=== PATIENT | female | born 1995 | race African-American/Black ===

== ENCOUNTER 2020-07-05 04:22 | Inpatient (IN) | payer OTHER ==
[~2020-07-05] VITALS: Ht 165.1 cm; Wt 83.5 kg
[2020-07-05 05:21] LABS: EOS % 0.5 % (0-4.0); GRAN # 1.4 (1.4-6.5); GRAN % 35.4 % (42.2-75.2); HEMATOCRIT 45.4 % (37.0-47.0); HEMOGLOBIN 14.4 g/dl (12.5-16.0); LYMPH # 1.9 (1.2-3.4); MEAN CELL VOLUME 79 fl (80.0-100.0); MEAN CORPUSCULAR HEMOGLOBIN 25 pg (27.0-31.0); MEAN CORPUSCULAR HGB CONC 32 g/dl (33.0-37.0); MEAN PLATELET VOLUME 11.2 fl (7.4-10.4); MONO # 0.6 (0.1-0.6); MONO % 15.6 % (1.7-9.3); PLATELET COUNT 234 K/mm3 (130-400); RED BLOOD COUNT 5.78 M/mm3 (4.10-5.30); REDCELL DISTRIBUTION WIDTH-CV 15.2 % (11.5-14.5)
[2020-07-05 05:36] LABS: ALANINE AMINOTRANSFERASE 37 U/L (4-34); ALBUMIN 4.4 gm/dL (3.5-5.0); ALKALINE PHOSPHATASE 84 U/L (50-136); ANION GAP 10 mmol/L (7-16); AST,SGOT 89 U/L (15-37); BILIRUBIN,TOTAL 0.6 mg/dL (0.0-1.0); BLOOD UREA NITROGEN 9 mg/dL (7-17); CARBON DIOXIDE 27 mmol/L (22-30); CHLORIDE 103 mmol/L (98-107); GLUCOSE 106 mg/dL (74-106); LIPASE 52 U/L (23-300); SODIUM 140 mmol/L (137-145); TOTAL PROTEIN 8.2 gm/dL (6.4-8.2)
[2020-07-05 05:38] LABS: C-REACTIVE PROTEIN < 0.5 mg/dL (0.0-0.9); POTASSIUM 2.9 mmol/L (3.4-5.0)
[2020-07-05] MEDS ORDERED: ZOFRAN ODT8 MG PO (09:59)
[2020-07-05] MEDS ORDERED: PHENERGAN 25 TA25 MG PO (09:59)
[2020-07-05 11:27] VITALS: BP 141/85; PULSE 76; PULSE 89; TEMP 99.3
[2020-07-05 15:46] VITALS: BP 112/88; PULSE 69; TEMP 99.5
[2020-07-05 16:02] LABS: COLLECTION METHOD CLEAN CATCH
[2020-07-05 16:09] LABS: MUCOUS Present /lpf; PH 6 (5-8); URINE APPEARANCE Clear; URINE BACTERIA None Seen /hpf; URINE BILIRUBIN Negative (NEGATIVE); URINE BLOOD Negative (NEGATIVE); URINE COLOR Yellow; URINE GLUCOSE Negative (NEGATIVE); URINE KETONE 1+ (NEGATIVE); URINE LEUKOCYTE ESTERASE Negative (NEGATIVE); URINE NITRATE Negative (NEGATIVE); URINE PROTEIN(semi-quant) Negative (NEGATIVE); URINE RBC 0-2 /hpf; URINE UROBILINOGEN Negative (NEGATIVE); URINE WBC 0-2 /hpf
--- NOTE | 2020-07-05 19:23 | NUR ---
Pt continues to report N/V, PRN Zofran administered twice. She reports no more diarrhea this afternoon. Reports she can "deal with the pain". POC discussed with patient. IVF infusing into LAC, patient asking if she has to keep IV in all night. Reasoning explained to patient. Continues on clear liquids. Report given to Chaya.
--- NOTE | 2020-07-05 19:30 | NUR ---
Received report from Krystyna. Seen patient awake lying in bed. With Iv on left AC infusing NS with 20meq KCL at 125ml/hr. Not in severe pain now. Maintained on clear liquids.
[2020-07-05 19:49] VITALS: BP 139/72; PULSE 77; TEMP 98.9
--- NOTE | 2020-07-05 22:05 | NUR ---
Patient complains of abdominal pain. Pain score of 8/10. Toradol IV given.
[2020-07-06] VITALS (8 sets, daily range): BP systolic 120–145; BP diastolic 63–82; PULSE 70–97; TEMP 98.3–102.3
--- NOTE | 2020-07-06 06:12 | NUR ---
Patient doesn't have any bowel movement the whole shift. She did complain of abdominal pain last night but was relieved with Toradol. Will endorse to day shift nurse.
[2020-07-06 07:34] LABS: BASO % 0.3 % (0.0-2.0); EOS % 0.8 % (0-4.0); GRAN # 1.5 (1.4-6.5); HEMATOCRIT 43.1 % (37.0-47.0); HEMOGLOBIN 13.5 g/dl (12.5-16.0); LYMPH # 1.6 (1.2-3.4); LYMPH % 43.6 % (20.0-51.0); MEAN CELL VOLUME 79 fl (80.0-100.0); MEAN CORPUSCULAR HEMOGLOBIN 25 pg (27.0-31.0); MEAN CORPUSCULAR HGB CONC 31 g/dl (33.0-37.0); MEAN PLATELET VOLUME 12.5 fl (7.4-10.4); MONO # 0.5 (0.1-0.6); PLATELET COUNT 155 K/mm3 (130-400); RED BLOOD COUNT 5.43 M/mm3 (4.10-5.30); REDCELL DISTRIBUTION WIDTH-CV 15.7 % (11.5-14.5)
[2020-07-06 07:45] LABS: ALBUMIN 3.9 gm/dL (3.5-5.0); BILIRUBIN,TOTAL 0.6 mg/dL (0.0-1.0); CALCIUM 8.7 mg/dL (8.4-10.2); CREATININE, serum 0.74 (0.52-1.25); MAGNESIUM 1.7 mg/dL (1.6-2.3); PHOSPHOROUS 2.6 mg/dL (2.5-4.5); TOTAL PROTEIN 7.3 gm/dL (6.4-8.2)
--- NOTE | 2020-07-06 08:14 | NUR ---
Assessment completed, alert/oriented, vital signs stable, denies pain or nausea this morning, reports only a small loose BM overnight, otherwise denies any issues this morning, when asked if she was feeling any better she replied " I dont really know ", abd is soft and BS +, denies N/V/pain at this time, heart RRR, lungs CTA, potassium was 4.0 this morning/ patient is refusing her scheduled PO dose of KCL at this time, she is resting quietly and denies needs at this time
--- NOTE | 2020-07-06 10:30 | NUR ---
Initial visit attempt; Design Engineering Specialist left card with information regarding the availability of spiritual care at our hospital.
--- NOTE | 2020-07-06 13:41 | NUR ---
IRWIN met with the patient to discuss discharge plan. The patient lives alone in [place]. She does not have any family around here and states that she used to be in the . She reports independence with ADLs and does not have any DME. The patient's primary care provider is Zaida Perez APRN at the [facility] and she also receives her medications through the [place]. She reports no difficulties obtaining her meds. The patient does not have advanced directives and she was not interested in completing a DPOA-HC at this time. She is not . She states that her mother, Sherrie Packer (ph#[phone]), is her next of kin. Her mother lives in [place]. The patient plans to return home upon discharge. No additional needs at this time.
--- NOTE | 2020-07-06 19:05 | NUR ---
Received report from Ke. Seen patient asleep in bed. Call light within reach.
--- NOTE | 2020-07-06 20:35 | NUR ---
Patient's temp at 1942H was 100.3F. Rechecked temp now and it's 102.3F. Informed Dr. Patricio and he ordered Tylenol and Blood culture.
--- NOTE | 2020-07-06 20:50 | NUR ---
Patient refuses the Tylenol for now since she feels like she's gonna vomit anytime soon. Informed her I can give the Zofran once it's due and we can try the Tylenol after.
[2020-07-07] VITALS (8 sets, daily range): BP systolic 118–135; BP diastolic 59–84; PULSE 57–88; TEMP 98.5–100.2
--- NOTE | 2020-07-07 06:33 | NUR ---
Patient's latest temp is 98.6F. No vomiting and bowel movement throughout the night. Will endorse to day shift.
[2020-07-07 07:57] LABS: ALBUMIN 3.8 gm/dL (3.5-5.0); BILIRUBIN,TOTAL 0.6 mg/dL (0.0-1.0); CALCIUM 8.7 mg/dL (8.4-10.2); CREATININE, serum 0.76 (0.52-1.25); POTASSIUM 4.1 mmol/L (3.4-5.0); TOTAL PROTEIN 7.1 gm/dL (6.4-8.2)
--- NOTE | 2020-07-07 13:30 | NUR ---
patients [facility] psychiatrist called me and notified me that the patient had a Zoom call appointment and voiced some suicidal thoughts, I have notified of this/ and I ahve spoke to the patient who reported she has no real suicidal intentions/ plans and that she only said that out of frustration of being sick and in the hospital, I explained to the patient that we take these matters seriously reguardless and has ordered a Psych consult and 15 minutes checks with close monitoring but does NOT require a 1:1 sitter, patient verbalized undestanding and we have moved her to room 355 where she can be visualized from the nursing desk at all times
--- NOTE | 2020-07-07 13:35 | NUR ---
Production Officer collaborated with RNKe and Regional Clinical Director about obtaining a screening from [facility] once medically stable. SW contacted the Crisis Stabilization Unit and faxed over initial information. Once medically cleared, Heath will screen patient. IRWIN will continue to follow.
--- NOTE | 2020-07-07 14:32 | NUR ---
REPORT FROM OFELIA YEPEZ.
--- NOTE | 2020-07-07 19:30 | NUR ---
Initial shift assessment done- states her IV site is bothering her, the tape is itching,, IV site still good, IV flushes well- will redress IV site and use gauze and papertape- pt agrees, IV fluids of NS at 75cc/hr. Has been resting well, denies nausea but states can not eat or drink or she will vomit, has had one small liquid type stool today -- inderstands we need a specimen for occult blood. On suicide precautions-
[2020-07-07 21:22] LABS: HIV 1/2 Antibodies Non-Reactive; HIV-1p24 Antigen Non-Reactive
[2020-07-08] VITALS (14 sets, daily range): BP systolic 122–135; BP diastolic 71–85; PULSE 62–83; TEMP 98.1–98.7
--- NOTE | 2020-07-08 05:55 | NUR ---
Quiet night-- VSS, pt quiet/calm all shift,, IV fluids remain at 75cc/hr, Zofran was given x1 during the night. Unable to use the SCD,s due to the suicide precautions-
--- NOTE | 2020-07-08 06:50 | NUR ---
PATIENT IS EASILY ARROUSED WHEN SHIFT REPORT WAS GIVEN. SHE DENIES OTHER NEEDS AT THIS TIME AND HAS BEEN ABLE TO TOLERATE WATER WITHOUT DIFFICULTY.
[2020-07-08 06:59] LABS: HEMATOCRIT 40.7 % (37.0-47.0); HEMOGLOBIN 12.9 g/dl (12.5-16.0); MEAN CELL VOLUME 79 fl (80.0-100.0); MEAN CORPUSCULAR HEMOGLOBIN 25 pg (27.0-31.0); MEAN CORPUSCULAR HGB CONC 32 g/dl (33.0-37.0); MEAN PLATELET VOLUME 11.1 fl (7.4-10.4); PLATELET COUNT 180 K/mm3 (130-400); RED BLOOD COUNT 5.15 M/mm3 (4.10-5.30); REDCELL DISTRIBUTION WIDTH-CV 15.6 % (11.5-14.5); RETIC # 0.03 M/mm3 (0.02-0.16); RETIC % 0.6 % (0.5-3.52)
[2020-07-08 07:11] LABS: ALBUMIN 3.6 gm/dL (3.5-5.0); BILIRUBIN,TOTAL 0.4 mg/dL (0.0-1.0); CALCIUM 8.5 mg/dL (8.4-10.2); CREATININE, serum 0.79 (0.52-1.25); MAGNESIUM 1.8 mg/dL (1.6-2.3); PHOSPHOROUS 3.2 mg/dL (2.5-4.5); POTASSIUM 3.7 mmol/L (3.4-5.0); TOTAL PROTEIN 6.8 gm/dL (6.4-8.2)
[2020-07-08 08:10] LABS: IRON,SERUM 49 ug/dL (35-150)
[2020-07-08 08:19] LABS: TOTAL IRON BINDING CAPACITY 282 ug/dL (265-497)
--- NOTE | 2020-07-08 08:30 | NUR ---
PATIENT ASSESSMENT COMPLETED. SHE DENIES PAIN OR NAUSEA AT THIS TIME. SHE WILL ATTEMPT TO EAT GRAPES THIS MORNING. TALKATIVE, SMILES. NO OTHER NEEDS AT THIS TIME.
[2020-07-08 09:39] LABS: LYMPHOCYTE 57 % (20.0-51.0); NEUTROPHILS 36 % (42.0-75.2); PLATELET ESTIMATE NORMAL (NORMAL)
--- NOTE | 2020-07-08 11:02 | NUR ---
patient continues to lay in bed. She is on her phone. Tolerated the grapes without difficulty this morning.
--- NOTE | 2020-07-08 15:19 | NUR ---
PATIENT RESTING IN BED ON HER PHONE. SHE DENIES OTHER NEEDS
[2020-07-08 19:33] LABS: FOLATE (FOLIC ACID) 12.4 ng/mL (7.0-31.4)
--- NOTE | 2020-07-08 20:30 | NUR ---
Initial shift assessment done- denies nausea at this time- VSS, no requests, IV fluids were DC,D today, INT to left AC, Up to bathroom on her own
[2020-07-09] VITALS (15 sets, daily range): BP systolic 109–132; BP diastolic 60–74; PULSE 62–78; TEMP 98.2–98.5
--- NOTE | 2020-07-09 05:57 | NUR ---
Quiet night- pt calm, did sleep for a few hours--VSS, no requests-- zofran given only the one time tonight after the flagyl p.o--- is not tolerating liquids/food--immediately vomited after flagyl was given-
[2020-07-09 08:26] LABS: HEMATOCRIT 43.9 % (37.0-47.0); HEMOGLOBIN 13.9 g/dl (12.5-16.0); MEAN CELL VOLUME 79 fl (80.0-100.0); MEAN CORPUSCULAR HEMOGLOBIN 25 pg (27.0-31.0); MEAN CORPUSCULAR HGB CONC 32 g/dl (33.0-37.0); MEAN PLATELET VOLUME 11.6 fl (7.4-10.4); PLATELET COUNT 161 K/mm3 (130-400); RED BLOOD COUNT 5.55 M/mm3 (4.10-5.30)
[2020-07-09 08:53] LABS: ALBUMIN 3.9 gm/dL (3.5-5.0); BILIRUBIN,TOTAL 0.5 mg/dL (0.0-1.0); CALCIUM 8.8 mg/dL (8.4-10.2); CREATININE, serum 0.78 (0.52-1.25); MAGNESIUM 1.9 mg/dL (1.6-2.3); POTASSIUM 3.6 mmol/L (3.4-5.0); TOTAL PROTEIN 7.2 gm/dL (6.4-8.2)
--- NOTE | 2020-07-09 09:58 | NUR ---
PATIENT ASSESSMENT COMPLETED. SHE IS LAYING IN BED LOOKING AT HER PHONE. SHE REFUSES TO EAT OR DRINK ANYTHING AT THIS TIME. SHE SAYS "WHAT'S THE POINT IT JUST GOING TO COME RIGHT BACK UP". WILL NOT TAKE AM MEDICATIONS EITHER. WILL NOTIFY DOCTOR WHEN HE MAKES ROUNDS.
[2020-07-09 09:59] LABS: BAND 1 % (0-10); LYMPHOCYTE 61 % (20.0-51.0); NEUTROPHILS 31 % (42.0-75.2)
[2020-07-09 10:00] LABS: ANISOCYTOSIS 1+; HYPOCHROMIA 1+; MICROCYTOSIS 1+
[2020-07-09 10:01] LABS: PLATELET ESTIMATE NORMAL (NORMAL)
[2020-07-09 10:03] LABS: BURR CELLS 1+
[2020-07-09] MEDS ORDERED: LEVAQUIN 750MG750 M1 PO ×2 (15:43→15:51)
[2020-07-09] MEDS ORDERED: FLAGYL500 MG PO (15:44)
[2020-07-09] MEDS ORDERED: PROTONIX 40MG T40 MG PO (15:45)
[2020-07-09] MEDS ORDERED: REGLAN 5MG T5 MG/TAB PO (15:45)
[2020-07-09] MEDS ORDERED: IMODIUM 2MG CAPS2 MG PO (15:45)
[2020-07-09] MEDS ORDERED: ZOFRAN 4MG T4 MG/TAB PO (15:46)
--- NOTE | 2020-07-09 17:00 | NUR ---
PATIENT DISCHARGED TO HOME. FRIEND CAME TO PICK HER UP.
--- NOTE | 2020-07-09 18:19 | NUR ---
PATIENT HAS ZOOM MEETING WITH [facility] FOR PSYCHOLOGY TO CLEAR TO GO HOME SHE IS MEDICALLY STABLE BUT NEEDS MENTAL HEALTH CLEARANCE
== END 2020-07-09 17:00 | disposition home or self-care (01) | DRG 757 ==
LOC: COL.ER 04:22 → MEDICAL 07:34
PROVIDERS: Emergency Medicine; Internal Medicine Infectious Disease; Physician Assistant; ADMIT Family Medicine
DX: N73.9 Female pelvic inflammatory disease, unspecified (principal); J18.9 Pneumonia, unspecified organism; R10.31 Right lower quadrant pain; E86.0 Dehydration; E87.6 Hypokalemia; D72.819 Decreased white blood cell count, unspecified; R74.0 Nonspecific elevation of levels of transaminase and lactic acid dehydrogenase [LDH]; F32.9 Major depressive disorder, single episode, unspecified; Z20.828 Contact with and (suspected) exposure to other viral communicable diseases; R19.7 Diarrhea, unspecified
CPT/HCPCS: OP; 99233-AI; 99239; C9113; G0378; J1885; J1956; J2405; J3010; J3480; J7030; Q9967